=== PATIENT | male | born 1970 | race Caucasian/White ===

== ENCOUNTER 2023-12-16 06:10 | Day surgery (SDC) | payer BC ==
[2023-12-16] MEDS ORDERED: Lactated Ringers 1,000 ML IV ONE (06:11)
[2023-12-16] MEDS ORDERED: Midazolam 1 MG/ML 2 ML SDV IV ONE (06:11)
[2023-12-16] MEDS ORDERED: fentaNYL 100 MCG/2 ML SDV IV ONE (06:11)
[2023-12-16] MEDS ORDERED: Propofol 200 MG/20 ML SDV IV ONE (06:11)
[2023-12-16] MEDS ORDERED: Sodium Chloride 0.9% 10 ML Syringe FLUSH PRN (06:15)
[2023-12-16] MEDS: Lactated Ringers 1,000 ML IV SCH (07:18)
[2023-12-16] MEDS: Simethicone Drops 40 MG/0.6 ML 30 ML Bottle PO ONE (07:38)
== END 2023-12-16 09:08 | disposition home or self-care (01) ==
LOC: FB.SDS 06:10
PROVIDERS: ATTEND Surgery
DX: R19.5 Other fecal abnormalities (principal); K62.5 Hemorrhage of anus and rectum; I10 Essential (primary) hypertension; Z79.899 Other long term (current) drug therapy; Z88.8 Allergy status to other drugs, medicaments and biological substances
CPT/HCPCS: 45378; A9270; J7120; 00811; J2250; J2704; J3010